=== PATIENT | male | born 1965 | race Caucasian/White ===

== ENCOUNTER → 2018-07-28 | Outpatient (CLI) | payer OTHER, SELFPAY ==
[2018-07-28 08:48] VITALS: BMI 26.6
--- NOTE | 2018-07-28 08:56 | RAD_ITS ---
STUDY: X-RAY - LEFT SHOULDER REASON FOR EXAM: [place] a pop in the shoulder while lifting. TECHNIQUE: 3 view(s) of the shoulder. COMPARISON: None. FINDINGS: Normal glenohumeral articulation. Normal acromioclavicular joint. Normal acromion. Normal humeral head and visualized proximal humerus. The soft tissue structures are unremarkable. Normal visualized pulmonary apex. RAD/Shoulder min 2 Views IMPRESSION: Normal x-ray examination of the left shoulder. Electronically Signed: Pedro Pablo Geiger MD at 12:47 EDT Tel , Service support ,
== END | disposition home or self-care (01) ==
LOC: HPRAD 08:55
PROVIDERS: Referring Provider Orthopaedic Surgery; Visit Provider Orthopaedic Surgery
DX: S46.212A Strain of muscle, fascia and tendon of other parts of biceps, left arm, initial encounter (principal)
CPT/HCPCS: 73030